=== PATIENT | male | born 1960 ===

== ENCOUNTER 2021-12-05 00:50 | Emergency (ER) | payer OTHER ==
--- OUTSIDE RECORDS SUMMARY | 2021-12-05 00:54 | XMS REPORT | Continuity of Care Document ---
:1960 Author Organization [facility] t Address [address] [place] [id number] Care Team Providers Name Role Phone Wayne Grijalva Primary Care Physician MELODY Attending Clinician Unavailable KRAIGISH Attending Clinician Unavailable Vaccine, Db Uc Attending Clinician Unavailable Ebrahim [employer] Attending Clinician EBRAHIM Attending Clinician Unavailable Doctor Unassigned, Name Attending Clinician Unavailable ANDRE DINH Attending Clinician Unavailable Nurse, Pob Immunization Attending Clinician Unavailable Andre Dinh DO Attending Clinician Lab, Fam Pob I Attending Clinician Unavailable Anene [employer] Attending Clinician ANENE Attending Clinician Unavailable Amisha PATINO Attending Clinician Unavailable Payers Payer Name Policy Type Policy Number Effective Date Expiration Date S travis [facility] [id number] 2021 00:00:00 [facility] MEDICARE [id number] 2016 COMPLETE 00:00:00 Problems Condition Condition Condition Status Onset Resolution Last Treating Co mments Source Name Details Category Date Date Treatment Clinician Date No known No known Disease Unive rs active active ity of problems problems [facility] Allergies, Adverse Reactions, Alerts Allergy Allergy Status Severity Reaction(s) Onset Inactive Treating Comm ents Source Name Type Date Date Clinician PENICILL DRUG Active Low Rash Univers IN INGREDI 01-17 ity of 00:00: [address] Penicill Propensi Active Rash Univer s in ty to 01-17 ity of adverse 00:00: [place] reaction 00 Medical s Branch Penicill Propensi Active Rash Univer s in ty to 01-17 ity of adverse 00:00: [place] reaction 00 Medical s Branch Penic[place] Allergy Active Rash [facility] ins to 01-17 Health substanc 00:00: e 00 Social History Social Habit Start Date Stop Date Quantity Comments Source Exposure to Not sure [facility] SARS-CoV-2 (event) Alcohol intake 2021-10-12 2021-10-12 0 /d [facility] 00:00:00 00:00:00 Tobacco use and 2017-02-24 2017-02-24 Smokeless tobacco Un iversity of exposure 00:00:00 00:00:00 non-user [facility] [place] History of 2009-11-11 Chews Tobacco [facility] tobacco use 00:00:00 Sex [birth year] [facility] 00:00:00 00:00:00 Smoking Status Start Date Stop Date Source Never smoked tobacco [facility] Medications Ordered Filled Start Stop Current Ordering Indication Dosage Frequency Signature Comments Components Source Medication Medication Date Date Medication? Clinician (SIG) Name Name influenza Yes [facility] vac subunit 10-12 Health quadrivalen 15:26: t 09 (Flucelvax Quadrivalen t) 0.5 ML injection ergocalcife Yes [id number] Take UT rol 10-12 50,000 Health (Vitamin 15:26: Units by D-2) 1.25 09 mouth. MG (63985 UT) capsule amitriptyli Yes [facility] ne (Elavil) 10-12 Health 10 MG 15:26: tablet 09 topiramate Yes UT (Topamax) 10-12 Health 25 MG 15:26: tablet 08 Pseudoephed Yes UT rine-Naprox 10-12 Health en Na 15:26: (ALEVE-D 08 SINUS & COLD PO) rizatriptan Yes [id number] 1 tab [facility] (Maxalt) 10 10-12 daily at Heal th MG tablet 00:00: onset of 00 headache, may repeat once in 2 hours. Can take together with Zofran. ondansetron Yes [id number] 1 tab BID UT (Zofran) 4 6-01 prn nausea Hea lth MG tablet 00:00: 00 topiramate 2021-0 Yes [id number] 1 tab at [facility] (Topamax) 6-01 bed x 1 Health 25 MG 00:00: wk, then, tablet 00 1 tab BID x 1 wk, then, 1 tab in AM and 2 tabs at bed x 1 wk, then 2 tabs BID thereafter . traMADol Yes UT (Ultram) 50 5-18 Health MG tablet 00:00: 00 tiZANidine 0 Yes UT (Zanaflex) 5-18 Health 4 MG tablet 00:00: 00 SUMAtriptan 0 Yes UT (Imitrex) 5-18 Health 100 MG 00:00: tablet 00 pantoprazol 0 Yes UT e 5-18 Health (ProtoNix) 00:00: 40 MG EC 00 tablet LORazepam Yes 1mg Q.5D Take 1 mg UT (Ativan) 1 5-13 by mouth 2 Hea lth MG tablet 00:00: (two) 00 times a day. OLANZapine Yes 15mg QD Take 15 mg U T (ZyPREXA) 5-08 by mouth 1 Heal th 15 MG 00:00: (one) time tablet 00 each day. Synthroid Yes 200ug QD Take 200 UT 200 MCG 2-21 mcg by Health tablet 00:00: mouth 1 00 (one) time each day. Cholecalcif Yes 1{capsu Take 1 U T ryne 2-11 le} capsule by [facility] (Vitamin 00:00: mouth 2 D3) 1.25 MG 00 (two) (14185 UT) times a capsule week. rivaroxaban 0 2020- No 1483 10mg Take 1 Uni vers (XARELTO) 7-10 07-25 tablet by ity of tablet 00:00: 04:59 mouth [place] 00 :00 daily for Medical 14 days. Branch Indication s: blood clot formation in veins alendronate Yes 70mg Take 70 mg Univers 70 mg 6-05 by mouth ity of tablet 19:28: weekly. [place] 26 Medical Branch levothyroxi 2018-0 Yes 250ug Take 250 U nivers ne 6-05 mcg by ity of (SYNTHROID) 19:28: mouth [place] 200 mcg 26 every Medical tablet morning. Branch TOPIRAMATE Yes Take by Uni vers (TOPAMAX 6-05 mouth 2 ity of ORAL) 19:28: (two) [place] 26 times Medical daily. Branch pregabalin Yes 75mg Take 75 mg U nivers (LYRICA) 75 6-05 by mouth 2 it y of mg capsule 19:28: (two) [place] 26 times Medical daily. Branch TRAMADOL Yes 50mg Take 50 mg Uni vers HCL 6-05 by mouth 4 ity of (TRAMADOL 19:28: (four) [place] ORAL) 26 times Medical daily. Branch GABAPENTIN Yes [id number] 300mg Take 300 Univers ORAL 6-05 [id number] mg by ity of 19:28: mouth 2 [place] 26 (two) Medical times Branch daily. Pantoprazol Yes 40mg Take 40 mg Univers e 40 mg 6-05 by mouth ity of delayed-rel 19:28: [place] Medical suspension Branch sumatriptan Yes 100mg Take 100 U nivers 100 mg 6-05 mg by ity of tablet 19:28: mouth as [place] [address] needed for Medical Migraine. Branch ergocalcife Yes [id number] Take Univ ers rol, 6-05 50,000 ity of vitamin d2, 19:28: Units by Saurav guillen (VITAMIN 26 mouth 2 Medical D2) 50,000 (two) Branch unit times per capsule week. tiZANidine Yes 4mg Take 4 mg Un [place] 4 mg tablet 6-05 by mouth 2 it y of 19:28: (two) [place] 26 times Medical daily. Branch LORazepam 1 Yes 1mg Take 1 mg U nivers mg tablet 6-05 by mouth 2 ity of 19:28: (two) [place] [address] times Medical daily. Branch amitriptyli 2018-0 Yes 10mg Take 10 mg Univers ne 10 mg 6-05 by mouth ity of tablet 19:28: at [place] [address] bedtime. Medical Branch alendronate 2018- Yes 70mg Take 70 mg Univers 70 mg 6-05 by mouth ity of tablet 19:28: weekly. [place] [address] Medical Branch levothyroxi 2019-0 Yes 250ug Take 250 U nivers ne 6-05 mcg by ity of (SYNTHROID) 19:28: mouth [place] 200 mcg 26 every Medical tablet morning. Branch TOPIRAMATE 2019 Yes Take by Uni vers (TOPAMAX 6-05 mouth 2 ity of ORAL) 19:28: (two) [place] [address] times Medical daily. Branch pregabalin 2019 Yes 75mg Take 75 mg U nivers (LYRICA) 75 6-05 by mouth 2 it y of mg capsule 19:28: (two) [place] 26 times Medical daily. Branch TRAMADOL 2019 Yes 50mg Take 50 mg Uni vers HCL 6-05 by mouth 4 ity of (TRAMADOL 19:28: (four) [place] ORAL) 26 times Medical daily. Branch GABAPENTIN 2019 Yes [id number] 300mg Take 300 Univers ORAL 6-05 [id number] mg by ity of 19:28: mouth 2 [place] 26 (two) Medical times Branch daily. Pantoprazol Yes 40mg Take 40 mg Univers e 40 mg 6-05 by mouth ity of delayed-rel 19:28: [place] Medical suspension Branch sumatriptan Yes 100mg Take 100 U nivers 100 mg 6-05 mg by ity of tablet 19:28: mouth as [place] [address] needed for Medical Migraine. Branch ergocalcife Yes [id number] Take Univ ers rol, 6-05 50,000 ity of vitamin d2, 19:28: Units by Saurav guillen (VITAMIN 26 mouth 2 Medical D2) 50,000 (two) Branch unit times per capsule week. tiZANidine Yes 4mg Take 4 mg Un [place] 4 mg tablet 6-05 by mouth 2 it y of 19:28: (two) [place] [address] times Medical daily. Branch LORazepam 1 Yes 1mg Take 1 mg U nivers mg tablet 6-05 by mouth 2 ity of 19:28: (two) [place] [address] times Medical daily. Branch amitriptyli 2019-0 Yes 10mg Take 10 mg Univers ne 10 mg 6-05 by mouth ity of tablet 19:28: at [place] [address] bedtime. Medical Branch alendronate 20190 Yes 70mg Take 70 mg Univers 70 mg 6-05 by mouth ity of tablet 19:28: weekly. [place] [address] Medical Branch levothyroxi 2019-0 Yes 250ug Take 250 U nivers ne 6-05 mcg by ity of (SYNTHROID) 19:28: mouth [place] 200 mcg 26 every Medical tablet morning. Branch TOPIRAMATE 2019 Yes Take by Uni vers (TOPAMAX 6-05 mouth 2 ity of ORAL) 19:28: (two) [place] 26 times Medical daily. Branch pregabalin 2019 Yes 75mg Take 75 mg U nivers (LYRICA) 75 6-05 by mouth 2 it y of mg capsule 19:28: (two) [place] 26 times Medical daily. Branch TRAMADOL 2019 Yes 50mg Take 50 mg Uni vers HCL 6-05 by mouth 4 ity of (TRAMADOL 19:28: (four) [place] ORAL) 26 times Medical daily. Branch GABAPENTIN 2019 Yes [id number] 300mg Take 300 Univers ORAL 6-05 [id number] mg by ity of 19:28: mouth 2 [place] 26 (two) Medical times Branch daily. Pantoprazol Yes 40mg Take 40 mg Univers e 40 mg 6-05 by mouth ity of delayed-rel 19:28: daily. [place] 26 Medical suspension Branch sumatriptan Yes 100mg Take 100 U nivers 100 mg 6-05 mg by ity of tablet 19:28: mouth as [place] [address] needed for Medical Migraine. Branch ergocalcife Yes [id number] Take Univ ers rol, 6-05 50,000 ity of vitamin d2, 19:28: Units by Saurav guillen (VITAMIN 26 mouth 2 Medical D2) 50,000 (two) Branch unit times per capsule week. tiZANidine Yes 4mg Take 4 mg Un [place] 4 mg tablet 6-05 by mouth 2 it y of 19:28: (two) [place] [address] times Medical daily. Branch LORazepam 1 2018- Yes 1mg Take 1 mg U nivers mg tablet 6-05 by mouth 2 ity of 19:28: (two) [place] [address] times Medical daily. Branch amitriptyli 2019-0 Yes 10mg Take 10 mg Univers ne 10 mg 6-05 by mouth ity of tablet 19:28: at [place] [address] bedtime. Medical Branch alendronate Yes 70mg Take 70 mg Univers 70 mg 6-05 by mouth ity of tablet 19:28: weekly. [place] [address] Medical Branch levothyroxi 2019-0 Yes 250ug Take 250 U nivers ne 6-05 mcg by ity of (SYNTHROID) 19:28: mouth [place] 200 mcg 26 every Medical tablet morning. Branch TOPIRAMATE 2019 Yes Take by Uni vers (TOPAMAX 6-05 mouth 2 ity of ORAL) 19:28: (two) [place] 26 times Medical daily. Branch pregabalin 2019 Yes 75mg Take 75 mg U nivers (LYRICA) 75 6-05 by mouth 2 it y of mg capsule 19:28: (two) [place] 26 times Medical daily. Branch TRAMADOL Yes 50mg Take 50 mg Uni vers HCL 6-05 by mouth 4 ity of (TRAMADOL 19:28: (four) [place] ORAL) 26 times Medical daily. Branch GABAPENTIN 2019 Yes [id number] 300mg Take 300 Univers ORAL 6-05 [id number] mg by ity of 19:28: mouth 2 [place] 26 (two) Medical times Branch daily. Pantoprazol Yes 40mg Take 40 mg Univers e 40 mg 6-05 by mouth ity of delayed-rel 19:28: [place]. [place] 26 Medical suspension Branch sumatriptan Yes 100mg Take 100 U nivers 100 mg 6-05 mg by ity of tablet 19:28: mouth as [place] needed for Medical Migraine. Branch ergocalcife Yes [id number] Take Univ ers rol, 6-05 50,000 ity of vitamin d2, 19:28: Units by Saurav guillen (VITAMIN 26 mouth 2 Medical D2) 50,000 (two) Branch unit times per capsule week. tiZANidine Yes 4mg Take 4 mg Un [place] 4 mg tablet 6-05 by mouth 2 it y of 19:28: (two) [place] 26 times Medical daily. Branch LORazepam 1 2019 Yes 1mg Take 1 mg U nivers mg tablet 6-05 by mouth 2 ity of 19:28: (two) [place] 26 times Medical daily. Branch amitriptyli 2019-0 Yes 10mg Take 10 mg Univers ne 10 mg 6-05 by mouth ity of tablet 19:28: at [place] [address] bedtime. Medical Branch alendronate Yes 70mg Take 70 mg Univers 70 mg 6-05 by mouth ity of tablet 19:28: weekly. [place] [address] Medical Branch levothyroxi 2019-0 Yes 250ug Take 250 U nivers ne 6-05 mcg by ity of (SYNTHROID) 19:28: mouth [place] 200 mcg 26 every Medical tablet morning. Branch TOPIRAMATE Yes Take by Uni vers (TOPAMAX 6-05 mouth 2 ity of ORAL) 19:28: (two) [place] 26 times Medical daily. Branch pregabalin Yes 75mg Take 75 mg U nivers (LYRICA) 75 6-05 by mouth 2 it y of mg capsule 19:28: (two) [place] 26 times Medical daily. Branch TRAMADOL Yes 50mg Take 50 mg Uni vers HCL 6-05 by mouth 4 ity of (TRAMADOL 19:28: (four) [place] ORAL) 26 times Medical daily. Branch GABAPENTIN 2019- Yes [id number] 300mg Take 300 Univers ORAL 6-05 [id number] mg by ity of 19:28: mouth 2 [place] 26 (two) Medical times Branch daily. Pantoprazol Yes 40mg Take 40 mg Univers e 40 mg 6-05 by mouth ity of delayed-rel 19:28: daily. [place] 26 Medical suspension Branch sumatriptan Yes 100mg Take 100 U nivers 100 mg 6-05 mg by ity of tablet 19:28: mouth as [place] needed for Medical Migraine. Branch ergocalcife Yes [id number] Take Univ ers rol, 6-05 50,000 ity of vitamin d2, 19:28: Units by Saurav guillen (VITAMIN 26 mouth 2 Medical D2) 50,000 (two) Branch unit times per capsule week. tiZANidine Yes 4mg Take 4 mg Un [place] 4 mg tablet 6-05 by mouth 2 it y of 19:28: (two) [place] 26 times Medical daily. Branch LORazepam 1 Yes 1mg Take 1 mg U nivers mg tablet 6-05 by mouth 2 ity of 19:28: (two) [place] 26 times Medical daily. Branch amitriptyli 2018- Yes 10mg Take 10 mg Univers ne 10 mg 6-05 by mouth ity of tablet 19:28: at [place] bedtime. Medical Branch levothyroxi 2019 Yes 250ug Take 250 U nivers ne 6-05 mcg by ity of (SYNTHROID) 14:28: mouth [place] 200 mcg 26 every Medical tablet morning. Branch TOPIRAMATE 2019-0 Yes Take by Uni vers (TOPAMAX 6-05 mouth 2 ity of ORAL) 14:28: (two) [place] [address] times Medical daily. Branch pregabalin 2019 Yes 75mg Take 75 mg U nivers (LYRICA) 75 6-05 by mouth 2 it y of mg capsule 14:28: (two) [place] [address] times Medical daily. Branch TRAMADOL 2019 Yes 50mg Take 50 mg Uni vers HCL 6-05 by mouth 4 ity of (TRAMADOL 14:28: (four) [place] ORAL) 26 times Medical daily. Branch GABAPENTIN 2019- Yes [id number] 300mg Take 300 Univers ORAL 6-05 [id number] mg by ity of 14:28: mouth 2 [place] [address] (two) Medical times Branch daily. Pantoprazol Yes 40mg Take 40 mg Univers e 40 mg 6-05 by mouth ity of delayed-rel 14:28: daily. [place] 26 Medical suspension Branch sumatriptan Yes 100mg Take 100 U nivers 100 mg 6-05 mg by ity of tablet 14:28: mouth as [place] [address] needed for Medical Migraine. Branch ergocalcife Yes [id number] Take Univ ers rol, 6-05 50,000 ity of vitamin d2, 14:28: Units by Saurav guillen (VITAMIN 26 mouth 2 Medical D2) 50,000 (two) Branch unit times per capsule week. tiZANidine Yes 4mg Take 4 mg Un [place] 4 mg tablet 6-05 by mouth 2 it y of 14:28: (two) [place] 26 times Medical daily. Branch LORazepam 1 Yes 1mg Take 1 mg U nivers mg tablet 6-05 by mouth 2 ity of 14:28: (two) [place] [address] times Medical daily. Branch amitriptyli Yes 10mg Take 10 mg Univers ne 10 mg 6-05 by mouth ity of tablet 14:28: at [place] [address] bedtime. Medical Branch alendronate Yes 70mg Take 70 mg Univers 70 mg 6-05 by mouth ity of tablet 14:28: weekly. [place] [address] Medical Branch levothyroxi 2019-0 Yes 250ug Take 250 U nivers ne 6-05 mcg by ity of (SYNTHROID) 14:28: mouth [place] 200 mcg 26 every Medical tablet morning. Branch TOPIRAMATE Yes Take by Uni vers (TOPAMAX 6-05 mouth 2 ity of ORAL) 14:28: (two) [place] 26 times Medical daily. Branch pregabalin 2019 Yes 75mg Take 75 mg U nivers (LYRICA) 75 6-05 by mouth 2 it y of mg capsule 14:28: (two) [place] 26 times Medical daily. Branch TRAMADOL Yes 50mg Take 50 mg Uni vers HCL 6-05 by mouth 4 ity of (TRAMADOL 14:28: (four) [place] ORAL) 26 times Medical daily. Branch GABAPENTIN Yes [id number] 300mg Take 300 Univers ORAL 6-05 [id number] mg by ity of 14:28: mouth 2 [place] 26 (two) Medical times Branch daily. Pantoprazol Yes 40mg Take 40 mg Univers e 40 mg 6-05 by mouth ity of delayed-rel 14:28: daily. [place] 26 Medical suspension Branch sumatriptan Yes 100mg Take 100 U nivers 100 mg 6-05 mg by ity of tablet 14:28: mouth as [place] [address] needed for Medical Migraine. Branch ergocalcife Yes [id number] Take Univ ers rol, 6-05 50,000 ity of vitamin d2, 14:28: Units by Saurav guillen (VITAMIN 26 mouth 2 Medical D2) 50,000 (two) Branch unit times per capsule week. tiZANidine Yes 4mg Take 4 mg Un [place] 4 mg tablet 6-05 by mouth 2 it y of 14:28: (two) [place] 26 times Medical daily. Branch LORazepam 1 Yes 1mg Take 1 mg U nivers mg tablet 6-05 by mouth 2 ity of 14:28: (two) [place] [address] times Medical daily. Branch amitriptyli Yes 10mg Take 10 mg Univers ne 10 mg 6-05 by mouth ity of tablet 14:28: at [place] [address] bedtime. Medical Branch alendronate 2019 Yes 70mg Take 70 mg Univers 70 mg 6-05 by mouth ity of tablet 14:28: weekly. [place] [address] Medical Branch levothyroxi 2019-0 Yes 250ug Take 250 U nivers ne 6-05 mcg by ity of (SYNTHROID) 14:28: mouth [place] 200 mcg 26 every Medical tablet morning. Branch TOPIRAMATE Yes Take by Uni vers (TOPAMAX 6-05 mouth 2 ity of ORAL) 14:28: (two) [place] [address] times Medical daily. Branch pregabalin Yes 75mg Take 75 mg U nivers (LYRICA) 75 6-05 by mouth 2 it y of mg capsule 14:28: (two) [place] [address] times Medical daily. Branch TRAMADOL Yes 50mg Take 50 mg Uni vers HCL 6-05 by mouth 4 ity of (TRAMADOL 14:28: (four) [place] ORAL) 26 times Medical daily. Branch GABAPENTIN 2019 Yes [id number] 300mg Take 300 Univers ORAL 6-05 [id number] mg by ity of 14:28: mouth 2 [place] [address] (two) Medical times Branch daily. Pantoprazol Yes 40mg Take 40 mg Univers e 40 mg 6-05 by mouth ity of delayed-rel 14:28: daily. [place] Medical suspension Branch sumatriptan Yes 100mg Take 100 U nivers 100 mg 6-05 mg by ity of tablet 14:28: mouth as [place] [address] needed for Medical Migraine. Branch ergocalcife Yes [id number] Take Univ ers rol, 6-05 50,000 ity of vitamin d2, 14:28: Units by Saurav guillen (VITAMIN 26 mouth 2 Medical D2) 50,000 (two) Branch unit times per capsule week. tiZANidine Yes 4mg Take 4 mg Un [place] 4 mg tablet 6-05 by mouth 2 it y of 14:28: (two) [place] [address] times Medical daily. Branch LORazepam 1 Yes 1mg Take 1 mg U nivers mg tablet 6-05 by mouth 2 ity of 14:28: (two) [place] [address] times Medical daily. Branch amitriptyli Yes 10mg Take 10 mg Univers ne 10 mg 6-05 by mouth ity of tablet 14:28: at [place] [address] bedtime. Medical Branch alendronate Yes 70mg Take 70 mg Univers 70 mg 6-05 by mouth ity of tablet 14:28: weekly. [place] [address] Medical Branch polymyxin B 2017- Yes [id number] 1 drop to Univers sulf-trimet 0-14 [id number] affected it y of hoprim 00:00: eye(s) [place] 10,000 00 4x/d: Medical unit- 1 early Branch mg/mL morning, ophthalmic bedtime, drops and twice more. Use until well then for 2 more days. polymyxin B 2016-05 Yes [id number] 1 drop to Univers sulf-trimet 0-14 [id number] affected it y of hoprim 00:00: eye(s) [place] 10,000 00 4x/d: Medical unit- 1 early Branch mg/mL morning, ophthalmic bedtime, drops and twice more. Use until well then for 2 more days. polymyxin B 2016-05 Yes [id number] 1 drop to Univers sulf-trimet 0-14 [id number] affected it y of hoprim 00:00: eye(s) [place] 10,000 00 4x/d: Medical unit- 1 early Branch mg/mL morning, ophthalmic bedtime, drops and twice more. Use until well then for 2 more days. polymyxin B 2016-05 Yes [id number] 1 drop to Univers sulf-trimet 0-14 [id number] affected it y of hoprim 00:00: eye(s) [place] 10,000 00 4x/d: Medical unit- 1 early Branch mg/mL morning, ophthalmic bedtime, drops and twice more. Use until well then for 2 more days. polymyxin B 2016-05 Yes [id number] 1 drop to Univers sulf-trimet 0-14 [id number] affected it y of hoprim 00:00: eye(s) [place] 10,000 00 4x/d: Medical unit- 1 early Branch mg/mL morning, ophthalmic bedtime, drops and twice more. Use until well then for 2 more days. polymyxin B 2016-05 Yes [id number] 1 drop to Univers sulf-trimet 0-14 [id number] affected it y of hoprim 00:00: eye(s) [place] 10,000 00 4x/d: Medical unit- 1 early Branch mg/mL morning, ophthalmic bedtime, drops and twice more. Use until well then for 2 more days. polymyxin B 2016-05 Yes [id number] 1 drop to Univers sulf-trimet 0-14 [id number] affected it y of hoprim 00:00: eye(s) [place] 10,000 00 4x/d: Medical unit- 1 early Branch mg/mL morning, ophthalmic bedtime, drops and twice more. Use until well then for 2 more days. polymyxin B 2017-1 Yes [id number] 1 drop to [facility] sulf-trimet 0-14 [id number] affected it y of hoprim 00:00: eye(s) [place] 10,000 00 4x/d: Medical unit- 1 early Branch mg/mL morning, ophthalmic bedtime, drops and twice more. Use until well then for 2 more days. Immunizations Ordered Filled Immunization Date Status Comments [facility] Immunization Name Name SARS-COV-2 COVID-19 2021-11-23 Completed Unive rsity of MODERNA 0.25ML 00:00:00 [place] Medi claudia BOOSTER VACCINE Branch SARS-COV-2 COVID-19 2021-04-04 Completed Unive rsity of MODERNA BOOSTER 00:00:00 [place] Med ical VACCINE Branch SARS-COV-2 COVID-19 2021-04-04 Completed Unive rsity of MODERNA 0.25ML 00:00:00 [place] Medi claudia BOOSTER VACCINE Branch SARS-COV-2 COVID-19 2021-04-04 Completed Unive rsity of MODERNA 0.25ML 00:00:00 [place] Medi claudia BOOSTER VACCINE Branch SARS-COV-2 COVID-19 2020-08-16 Completed Unive rsity of MODERNA VACCINE 00:00:00 [place] Med ical Branch SARS-COV-2 COVID-19 2020-08-16 Completed Unive rsity of MODERNA VACCINE 00:00:00 [place] Med ical Branch SARS-COV-2 COVID-19 2020-08-16 Completed Unive rsity of MODERNA VACCINE 00:00:00 [place] Med ical Branch SARS-COV-2 COVID-19 2020-08-16 Completed Unive rsity of MODERNA VACCINE 00:00:00 [place] Med ical Branch SARS-COV-2 COVID-19 2020-07-19 Completed Unive rsity of MODERNA VACCINE 00:00:00 [place] Med ical Branch SARS-COV-2 COVID-19 2020-07-19 Completed Unive rsity of MODERNA VACCINE 00:00:00 [place] Med ical Branch SARS-COV-2 COVID-19 2020-07-19 Completed Unive rsity of MODERNA VACCINE 00:00:00 [place] Med ical Branch SARS-COV-2 COVID-19 2020-07-19 Completed Unive rsity of MODERNA VACCINE 00:00:00 [facility] ical Branch Vital Signs Vital Name Observation Time Observation Value Comments Source Systolic blood 2021-10-12 20:23:00 121 mm[Hg] [facility] Diastolic blood 2021-10-12 20:23:00 85 mm[Hg] [facility] Heart rate 2021-10-12 20:23:00 86 /min [facility] Body temperature 2021-10-12 20:22:00 36.78 [place] [facility] Body height 2021-10-12 20:22:00 182.9 cm [facility] weight 2021-10-12 20:22:00 [facility] 2021-10-12 20:22:00 38.00 kg/m2 [facility] Oxygen saturation in 2021-10-12 20:22:00 93 /min [facility] Arterial blood by Pulse oximetry Heart rate 2020-03-02 16:00:00 68 /min [facility] Medical Branch Respiratory rate 2020-03-02 16:00:00 16 /min [facility] Medical Branch Oxygen saturation in 2020-03-02 16:00:00 97 /min [facility] blood by [facility] Pulse oximetry Branch Procedures Procedure Date / Time Performing Clinician Source Performed SARS-COV-2 COVID-19 2021-11-23 23:10:28 Doctor Unassigned, No [facility] [place] VACCINE Name Medical Branch BOOSTER,0.25ML,IM (MODERNA) ASSIGNMENT OF BENEFITS 2021-11-23 23:02:20 Doctor Unassigned, No [facility] Name Medical Branch SARS-COV-2 COVID-19 2021-04-04 15:48:00 Doctor Unassigned, No [facility] [place] VACCINE Name Medical Branch BOOSTER,0.25ML,IM (MODERNA) AUTHORIZATION FOR 2019-11-24 05:01:00 Doctor Unassigned, No [facility] Name Medical Branch CONSENT/REFUSAL FOR 2019-11-20 22:01:42 Doctor Unassigned, No [facility] [place] DIAGNOSIS AND TREATMENT Name Medical Branch Encounters Start End Encounter Admission Attending Care Care Encounter Source Date/Time Date/Time Type Type Clinicians Facility Department ID 2021-11-28 Outpatient MELODY, [facility] [id number] [place] 15:35:33 BASSEM [id number] [facility] 2021-10-16 Outpatient JOSH [facility] [id number] [place] 01:05:18 LISA [id number] [facility] 2021-03-11 Emergency [facility] [id number] Univers 05:53:53 ity [facility] 2021-11-23 2021-11-23 Imm/Inj Vaccine, Ang Db [facility] [id number] .[id number] Univers 18:10:00 18:20:00 Visit Adam Adler [facility] [id number] ity of [place] [id number] [place]y as MOISÉS?BLEA [phone] [place] [address] OFFICE [facility] 2021-11-23 2021-11-23 Outpatient R [facility] [id number] Univers 18:10:00 18:10:00 [id number] [facility] 2021-11-23 2021-11-23 Outpatient R MATTHEW [facility] [id number] Univers 18:10:00 18:10:00 [facility] 2021-11-23 2021-11-23 Orders Doctor JUANA [id number] Univers 00:00:00 00:00:00 Only Unassigned, AGATA [id number] ity of [place] [facility] [id number] [place] as [phone] [address] 2021-10-12 2021-10-12 Office MEY Camacho 6400 [id number] [place] 15:00:00 16:00:00 Visit Lisa ESPINOSAMICHELA HINDS [id number] [facility] [id number] 2021-04-04 2021-04-04 Outpatient R OSMIN [facility] [id number] Univers 09:30:00 09:30:00 SANDIP [facility] 2021-04-04 2021-04-04 Imm/Inj Nurse, Adc Pob Immunization [facility] 1.2.840.114 [id number] Univers 09:17:13 09:17:22 Visit Sandip Dinh 350.1.13 .10 ity [facility] [id number] PROF[place] [phone] [place] dical NAL [address] BU[address] 2020-08-20 2020-08-20 Laboratory Lab, [facility] I [facility] 1.. 840.114 [id number] Univers 11:00:58 11:20:58 Only [facility] [id number] ity of [place] [id number] [place] Professio [phone] [place] dical nal [address] 2020-08-20 2020-08-20 Outpatient R [facility] [id number] Univers 11:00:00 11:00:00 [id number] ity [facility] 2020-08-20 2020-08-20 [facility] [id number] Univers 11:00:00 11:00:00 MARYBEL ity [facility] 2020-08-16 2020-08-16 Outpatient R CAREY, [facility] [id number] Univers 12:10:00 12:10:00 ARGENIS ity [facility] 2020-07-19 2020-07-19 [facility] [id number] Univers 12:10:00 12:10:00 ARGENIS ity [facility] 2020-03-02 2020-03-02 Outpatient R [facility] [id number] Univers 11:40:00 11:40:00 [id number] ity [facility] 2020-03-02 2020-03-02 Outpatient R [facility] [id number] Univers 11:40:00 11:40:00 ity [facility] 2020-03-02 2020-03-02 Laboratory Lab, [facility] I [facility] 1.2. 840.114 [id number] Univers 11:00:03 11:20:03 Only [facility] [id number] ity of [place] [id number] [place] as Professio [phone] Me dical nal [address] 2020-03-02 2020-03-02 Letter Doctor JUANA 1.2.840.114 [id number] Univers 00:00:00 00:00:00 (Out) Unassigned, AGATA [id number] ity of [place] [facility] [id number] [place]y as [phone] [facility] [address] 2019-11-24 2019-11-24 Orders Doctor JUANA 1.2.840.114 [id number] Univers 00:00:00 00:00:00 Only Unassigned, AGATA [id number] ity of [place] [facility] [id number] Davey as [phone] [facility] [address] 2019-11-20 2019-11-20 Orders Doctor JUANA Palma.2.840.114 [id number] Univers 00:00:00 00:00:00 Only Unassigned, AGATA [id number] ity of [place] [facility] [id number] [place] as [phone] [address] Results This patient has no known results.
--- NOTE | 2021-12-05 01:16 | EDPHYS ---
Physician Documentation [facility] Name: German Jordan Age: 61 yrs Sex: Male : 1960 Arrival Date: 12/05/2021 Time: 00:53 Bed 14 Private MD: ED Physician Barak Fields HPI: 12/05 01:07 This 61 yrs old Male presents to ER via Unassigned with complaints of Problem With ms3 Urinary Catheter. 01:07 The patient presents with a Yost catheter problem. ms3 01:08 61-year-old male presents for foreign body in urine catheter tubing. Patient states his ms3 catheter was pulled by his pants earlier tonight and he had some blood and then saw tissue that looked like a worm in his catheter line. Patient denies pain. Patient denies alleviating or inciting factors. Patient denies fevers, chills, nausea, vomiting. Historical: - Allergies: 01:30 Codeine; lg3 01:30 Onion; lg3 - Immunization history:: Adult Immunizations up to date, Client reports receiving the 2nd dose of the Covid vaccine, moderna X3. - Social history:: Smoking status: Patient denies any tobacco usage or history of. Patient/guardian denies using alcohol, street drugs. ROS: 01:08 Constitutional: Negative for fever, and chills. Neck: Negative for injury, pain, and ms3 swelling, Cardiovascular: Negative for chest pain, and palpitations. Respiratory: Negative for shortness of breath, cough, wheezing, and pleuritic chest pain, Abdomen/GI: Negative for abdominal pain, nausea, vomiting, diarrhea, and constipation, MS/Extremity: Negative for injury and deformity, Skin: Negative for injury, rash, and discoloration, Psych: Negative for depression, anxiety, suicide ideation, homicidal ideation, and hallucinations. 01:08 : Positive for Catheter problem. 01:08 All other systems are negative. Exam: 01:08 Constitutional: This is a well developed, well nourished patient who is awake, alert, ms3 and in no acute distress. Head/Face: Normocephalic, atraumatic. Neck: Trachea midline, no cervical lymphadenopathy. Supple, full range of motion without nuchal rigidity, or vertebral point tenderness. No Meningismus. Chest/axilla: Normal chest wall appearance and motion. Nontender with no deformity. Cardiovascular: Regular rate and rhythm with a normal S1 and S2. No gallops, murmurs, or rubs. Normal PMI, no JVD. No pulse deficits. Respiratory: Lungs have equal breath sounds bilaterally, clear to auscultation and percussion. No rales, rhonchi or wheezes noted. No increased work of breathing, no retractions or nasal flaring. Abdomen/GI: Soft, non-tender, with normal bowel sounds. No distension or tympany. No guarding or rebound. No evidence of tenderness throughout. Skin: Warm, dry with normal turgor. Normal color with no rashes, no lesions, and no evidence of cellulitis. MS/ Extremity: Pulses equal, no cyanosis. Neurovascular intact. Full, normal range of motion. 01:08 : Catheter tubing with sediment present. Vital Signs: 01:27 BP 134 / 89; Pulse 89; Resp 17 S; Temp 98.5(O); Pulse Ox 97% on R/A; Weight 99.79 kg lg3 (R); Height 5 ft. 8 in. (172.72 cm) (R); Pain 4/10; 01:27 Body Mass Index 33.45 (99.79 kg, 172.72 cm) lg3 MDM: 00:54 Patient medically screened. ms3 01:08 Differential diagnosis: Yost catheter problem. Data reviewed: vital signs, nurses ms3 notes, and as a result, I will discharge patient. Counseling: I had a detailed discussion with the patient and/or guardian regarding: the historical points, exam findings, and any diagnostic results supporting the discharge/admit diagnosis, lab results, the need for outpatient follow up, to return to the emergency department if symptoms worsen or persist or if there are any questions or concerns that arise at home. Administered Medications: No medications were administered Disposition Summary: 12/05/21 01:15 Discharge Ordered Location: Home ms3 Condition: Stable ms3 Diagnosis - Yost catheter problem ms3 Followup: ms3 - With: Private Physician - When: 2 - 3 days - Reason: Recheck today's complaints Discharge Instructions: - Discharge Summary Sheet ms3 - Indwelling Urinary Catheter Care, Adult ms3 Forms: - Medication Reconciliation Form ms3 - Thank You Letter ms3 - Antibiotic Education ms3 - Prescription Opioid Use ms3 Signatures: Mayrse Mercer, RN RN lg3 Diamond, Barak, DO DO ms3
--- NOTE | 2021-12-05 01:38 | ER ---
Nurse's Notes [facility] Name: German Jordan Age: 61 yrs Sex: Male : 1960 Arrival Date: 12/05/2021 Time: 00:53 Bed 14 Private MD: Diagnosis: Yost catheter problem Presentation: 12/05 01:27 Chief complaint: Patient states: i had a urinary catheter placed on the 08 of November lg3 after surgery and tonight i started having worm like strings and blood in the catheter tubing. Coronavirus screen: Client denies travel out of the [place] in the last 14 days. At this time, the client does not indicate any symptoms associated with coronavirus-19. Ebola Screen: No symptoms or risks identified at this time. Initial Sepsis Screen: Does the patient meet any 2 criteria? No. Patient's initial sepsis screen is negative. Does the patient have a suspected source of infection? No. Patient's initial sepsis screen is negative. Risk Assessment: Do you want to hurt yourself or someone else? Patient reports no desire to harm self or others. Onset of symptoms was December 05, 2021. 01:27 Method Of Arrival: Ambulatory lg3 01:27 Acuity: TEETEE 4 lg3 Triage Assessment: 01:30 General: Appears in no apparent distress. comfortable, Behavior is calm, cooperative. lg3 Pain: Complains of pain in groin. EENT: No deficits noted. No signs and/or symptoms were reported regarding the EENT system. Neuro: No deficits noted. Level of Consciousness is awake, alert, obeys commands, Oriented to person, place, time, situation. Cardiovascular: No deficits noted. Denies chest pain, shortness of breath, Capillary refill < 3 seconds Clubbing of nail beds is absent JVD is absent Patient's skin is warm and dry. Respiratory: No deficits noted. Airway is patent Trachea midline Respiratory effort is even, unlabored, Respiratory pattern is regular, symmetrical. GI: No deficits noted. Abdomen is round non-distended, Bowel sounds present X 4 quads. : Yost in place Urine is clear. Derm: No deficits noted. No signs and/or symptoms reported regarding the dermatologic system. Skin is intact, is healthy with good turgor, Skin is dry, Skin temperature is warm. Musculoskeletal: No deficits noted. No signs and/or symptoms reported regarding the musculoskeletal system. Circulation, motion, and sensation intact. Range of motion: intact in all extremities. Historical: - Allergies: 01:30 Codeine; lg3 01:30 Onion; lg3 - Immunization history:: Adult Immunizations up to date, Client reports receiving the 2nd dose of the Covid vaccine, moderna X3. - Social history:: Smoking status: Patient denies any tobacco usage or history of. Patient/guardian denies using alcohol, street drugs. Screenin:33 Abuse screen: Denies threats or abuse. Denies injuries from another. Nutritional lg3 screening: No deficits noted. Tuberculosis screening: No symptoms or risk factors identified. Fall Risk None identified. Assessment: :33 General: see triage assessment . lg3 Vital Signs: 01:27 BP 134 / 89; Pulse 89; Resp 17 S; Temp 98.5(O); Pulse Ox 97% on R/A; Weight 99.79 kg lg3 (R); Height 5 ft. 8 in. (172.72 cm) (R); Pain 4/10; 01:27 Body Mass Index 33.45 (99.79 kg, 172.72 cm) lg3 ED Course: 00:53 Patient arrived in ED. bp1 00:54 Barak Fields DO is Attending Physician. ms3 01:27 Maryse Mercer RN is Primary Nurse. lg3 01:30 Triage completed. lg3 01:30 Arm band placed on left wrist. lg3 01:33 Patient has correct armband on for positive identification. Bed in low position. Call lg3 light in reach. Side rails up X 1. Client placed on continuous cardiac and pulse oximetry monitoring. NIBP monitoring applied. Door closed. Noise minimized. 01:33 No provider procedures requiring assistance completed. Patient did not have IV access lg3 during this emergency room visit. Administered Medications: No medications were administered Medication: :33 VIS not applicable for this client. lg3 Outcome: 01:15 Discharge ordered by . ms3 01:38 Discharged to home ambulatory. lg3 01:38 Condition: stable 01:38 Discharge instructions given to patient, Instructed on discharge instructions, Demonstrated understanding of instructions. 01:38 Patient left the ED. lg3 Signatures: Maryse Mercer RN RN lg3 Barak Fields DO DO ms3 Louisa Jazmine bp1
[2021-12-05 01:47] VITALS: BP 134/89; TEMP 98.5; O2SAT 97
== END 2021-12-05 01:38 | disposition home or self-care (01) ==
LOC: ER 00:50
DX: T83.091A Other mechanical complication of indwelling urethral catheter, initial encounter (principal); Z88.5 Allergy status to narcotic agent; Z91.018 Allergy to other foods
CPT/HCPCS: 99281